=== PATIENT | male | born 1950 | race Caucasian/White ===

== ENCOUNTER 2018-03-13 12:58 | Emergency (ER) | payer OTHER ==
[~2018-03-13] VITALS: Ht 185.4 cm; Wt 104.3 kg
[2018-03-13] MEDS ORDERED: TOPROL XL25 M1 (13:04)
[2018-03-13] MEDS ORDERED: HYZAAR 50-12.51 EACH (13:05)
[2018-03-13] MEDS ORDERED: SINGULAIR10 MG (13:06)
[2018-03-13] MEDS ORDERED: ADVAIR HFA 115/12 GM (13:06)
== END 2018-03-13 20:57 | disposition home or self-care (01) ==
LOC: ER 12:58
DX: N21.0 Calculus in bladder (principal); N20.0 Calculus of kidney; J11.1 Influenza due to unidentified influenza virus with other respiratory manifestations

== ENCOUNTER 2021-06-18 08:00 | Outpatient (CLI) | payer OTHER ==
[~2021-06-18 08:00] MED LIST: ADVAIR HFA 115/12 GM; HYZAAR 50-12.51 EACH; SINGULAIR10 MG; TOPROL XL25 M1
== END 2021-06-18 08:30 | disposition home or self-care (01) ==
LOC: PPH VACUNA 08:00
PROVIDERS: ATTEND Emergency Medicine Pediatric Emergency Medicine
DX: Z23 Encounter for immunization (principal)

== ENCOUNTER 2022-02-05 13:33 | Outpatient (CLI) | payer OTHER | END 2022-02-05 13:43 | disposition home or self-care (01) | LOC: PPH VACUNA 13:33 | PROVIDERS: ATTEND Emergency Medicine Pediatric Emergency Medicine | DX: Z23 Encounter for immunization (principal) ==

== ENCOUNTER 2024-04-07 13:26 | Outpatient (CLI) | payer OTHER | END 2024-04-07 13:35 | disposition home or self-care (01) | LOC: SONOGRAMA 13:26 | PROVIDERS: ATTEND Internal Medicine | DX: D17.1 Benign lipomatous neoplasm of skin and subcutaneous tissue of trunk (principal) ==